=== PATIENT | female | born 1970 | race Caucasian/White ===

== ENCOUNTER 2019-02-11 11:48 | Emergency (ER) | payer OTHER ==
[2019-02-11] MEDS ORDERED: KETOROLAC 30 MG/ML INJ ONE (12:30)
[2019-02-11] MEDS ORDERED: ACETAMINOPHEN 500 MG TAB ONE (12:30)
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
[2019-02-11 12:55] VITALS: TEMP 98.6; O2SAT 100
[2019-02-11 12:57] VITALS: BP 116/76
== END 2019-02-11 12:47 | disposition home or self-care (01) ==
LOC: ER 11:48
DX: M54.12 Radiculopathy, cervical region (principal); V49.40XA Driver injured in collision with unspecified motor vehicles in traffic accident, initial encounter; Z88.0 Allergy status to penicillin
CPT/HCPCS: 96372; 99283